=== PATIENT | female | born 1990 | race Caucasian/White ===

== ENCOUNTER 2017-04-11 01:55 | Inpatient (IN) ==
[2017-04-11] MEDS: LACTATED RINGERS 1,000 ML IV SCH ×3 (02:05→03:58)
[2017-04-11] MEDS ORDERED: MEPERIDINE 50 MG/1 ML VIAL IM PRN (02:09)
[2017-04-11] MEDS ORDERED: ONDANSETRON 4 MG/2 ML VIAL IV PRN ×2 (02:09→12:42)
[2017-04-11 02:18] LABS: Basophils % 0.2 % (0.0-0.8); Eosinophils % 0.5 % (0.00-10.9); Hematocrit 33.6 VOL% (35.7-47.0); Hemoglobin 11.2 GM/DL (12.0-16.0); Immature Granulocytes % 0.7 %; Immature Granulocytes Absolute 0.06 #; Lymphocytes % 22.7 % (21.3-54.2); Mean Corpuscular HGB Conc 33.3 GM/DL (32-36); Mean Corpuscular Hemoglobin 32 PG (27-34); Mean Corpuscular Volume 95.5 FL (87-102); Mean Platelet Volume 11.8 FL (9.6-12.0); Monocytes # 0.7 10*3/uL (0.11-0.8); Neutrophils # 5.9 10*3/uL (1.4-7.4); Neutrophils % 67.9 % (38.7-73.9); Platelet Count 187 T/CUMM (130-400); Red Blood Count 3.52 MC/CUMM (3.8-5.5); White Blood Count 8.6 T/CUMM (4-12)
[2017-04-11] MEDS ORDERED: CITRIC ACID/SODIUM CITRATE 30 ML UDCUP PO ONE (02:19)
[2017-04-11] MEDS ORDERED: FAMOTIDINE 20 MG/2 ML VIAL IV ONE (02:19)
[2017-04-11] MEDS ORDERED: OXYTOCIN/LR 20 UNIT/1,000 ML BAG IV ONE ×2 (02:20→12:42)
[2017-04-11] MEDS ORDERED: fentaNYL 2 MCG/ROPIV 0.2% EPID 150 ML EPIDURAL SCH (02:21)
[2017-04-11] MEDS ORDERED: ePHEDrine 50 MG/ML AMP ONE (02:43)
[2017-04-11 02:47] LABS: Alanine Aminotransferase 17 U/L (13-56); Albumin 2.7 G/DL (3.4-5.0); Alkaline Phosphatase 146 U/L (45-117); Aspartate Amino Transferase 21 U/L (0-37); Bilirubin,Total < 0.39 MG/DL (0.2-1.0); Blood Urea Nitrogen 8 MG/DL (7-18); Calcium 8.8 MG/DL (8.5-10.1); Glucose 78 MG/DL (74-106); Osmolality,Calculated 271.7 MOS/KG (273-304); Potassium 3.9 MMOL/L (3.5-5.1); Sodium 138 MMOL/L (136-145); Total Protein 6.7 G/DL (6.4-8.3)
[2017-04-11 04:18] LABS: Apearance,Urine CLEAR (Clear); Bilirubin,Urine Negative (Negative); Blood, Urine Negative (Negative); Glucose,Urine (UA) Negative (Negative); Ketones,Urine Negative (Negative); Nitrite,Urine Negative (Negative); Protein,Urine Negative; RBC,Urine <1 /HPF (0-4); Squamous Epithelial Cell,Urine Occasional /HPF (0-10); Urine Color Straw (Yellow); Urine Specific Gravity 1.005 (1.001-1.035); Urine Urobilinogen < 2.0 EU/DL (0.2-1.0); WBC,Urine 2 /HPF (0-6)
[2017-04-11] MEDS ORDERED: miSOPROStol 200 MCG TABLET ONE (07:38)
--- NOTE | 2017-04-11 08:22 | OB/GYN History & Physical ---
History of Present Illness Chief complaint: Primigravida at term with labor History of present illness: Ms. Arce is a 27 year old female who has received her care from Dr. Hummel. There is apparently been no significant complications. She presented to labor and delivery last night with spontaneous rupture of membranes. This is been followed by spontaneous labor and she is progressed to complete dilatation and effacement without or maternal distress. Home Medications Medication Instructions Recorded Confirmed Type Potassium Citrate [Potassium 1 tablet PO DAILY 04/11/17 04/11/17 History Citrate ER] No122/Iron/Folic Acid 1 tablet PO DAILY 04/11/17 04/11/17 History [ Multi Tablet] Allergies Allergy/AdvReac Type Severity Reaction Status Date / Time No Known Allergies Allergy Unverified 07/31/16 08:08 - Constitutional Constitutional: Present: as per HPI - EENT Eyes: Present: as per HPI - Cardiovascular Cardiovascular: Present: as per HPI - Respiratory Respiratory: Present: as per HPI - Gastrointestinal Gastrointestinal: Present: as per HPI - Genitourinary Genitourinary: Present: as per HPI - Musculoskeletal Musculoskeletal: Present: as per HPI - Neurological Neurological: Present: as per HPI - Psychiatric Psychiatric: Present: as per HPI - Endocrine Endocrine: Present: as per HPI - Hematologic/Lymphatic Hematologic/Lymphatic: Present: as per HPI Medical,Surgical,& Family Hx - Medical History Medical History: noncontributory Genitourinary: History of: Kidney Stones Reproductive: No history of: Ectopic , Complication - Surgical History Reproductive Surgeries: Patient denies;: Section - Family History Family History: Reports;: Family Diabetes (MGF, MGM), Family Heart Disease (MGF) , Family Hypertension (MOTHER), Additional Family History (SEIZURES- MGM EPILEPSY) Denies;: Family Anesthesia Reaction, Family Cancer, Family Hematology, Family Psychiatric Problems, Family Stroke - Social History Smoking Status: Never smoker Frequency of Alcohol Use: None Type of Drug Use: None 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 Absent: accessory muscle use - Cardiovascular Cardiovascular exam: Present: regular rate and rhythm - GI/Abdominal GI/Abdominal exam: Present: mass (Uterine fundus of that expected size). Absent : tenderness - Extremities Exam Extremities exam: Present: normal inspection - Neurological Exam Neurological exam: Present: alert, oriented X3 - Psychiatric Psychiatric exam: Present: normal affect, normal mood - Skin Skin exam: Present: normal color, warm Assessment and Plan (1) Active labor at term Status: Acute Assessment and plan: Routine labor management Current Visit: Yes Results - Labs CBC & BMP: 04/11/17 02:05 04/11/17 02:05
--- NOTE | 2017-04-11 09:44 | Operative Note ---
Date of procedure: 04/11/17 Pre-op diagnosis: at term with active labor Post-op diagnosis: same (With delivery, second-degree midline laceration) Procedure: Vacuum-assisted vaginal delivery, repair of second-degree midline laceration The patient was prepped and draped in the dorsolithotomy position and expulsive efforts encouraged. Vacuum extractor was applied to the head fixated in place under the pubic arch, requiring 2 pulls with no pop offs. The perineum was supported his head was delivered. A nuchal cord was noted and clamped and cut on the perineum. Infant's shoulder was delivered with the next push without difficulty. The infant was transferred to the warmer in satisfactory condition , with Apgars of 9 and 9. Weight of approximately 7 pounds was given. The placenta was allowed to separate spontaneously and was delivered Modi Kurtz maneuver. Midline laceration was noted extending from several inches inside the vagina to the perineum almost to the skin. This was closed in a routine fashion right midline episiotomy. The patient and the infant are recovering satisfactorily. Anesthesia: epidural Surgeon / Physician: Myron Graham Estimated blood loss: other (200 cc) Specimens: none sent (Placenta discarded) Disposition: no change Results - Labs CBC & BMP: 04/11/17 02:05 04/11/17 02:05 Discharge Plan - Discharge Medications No Action No122/Iron/Folic Acid [ Multi Tablet] 1 tablet PO DAILY Potassium Citrate [Potassium Citrate ER] 1 tablet PO DAILY - Follow Up or Referral - Forms/Instructions
[2017-04-11] MEDS ORDERED: diphenhydrAMINE 50 MG/1 ML VIAL ONE (09:55)
[2017-04-11] MEDS ORDERED: diphenhydrAMINE 50 MG/1 ML VIAL IV ONE (09:56)
[2017-04-11 10:04] LABS: HIV Antigen/Antibody Result Nonreactive (Nonreactive)
[2017-04-11] MEDS ORDERED: MEASLES/MUMPS/RUBELLA VACCINE 0.5 ML VIAL SUBCUT ONE (12:42)
[2017-04-11] MEDS ORDERED: BISACODYL 10 MG SUPP RECTAL PRN (12:42)
[2017-04-11] MEDS ORDERED: WITCH HAZEL PADS 100/JAR TOP PRN (12:42)
[2017-04-11] MEDS ORDERED: HYDROCORTISONE 2.5% RECTAL CREAM 30 GM TUBE TOP PRN (12:42)
[2017-04-11] MEDS ORDERED: RHO(D) IMMUNE GLOBULIN 300 MCG SYRINGE IM ONE (12:42)
[2017-04-11] MEDS ORDERED: DIPH/TET/ACEL PERT BOOSTER VACCINE 0.5 ML VIAL IM ONE (12:42)
[2017-04-11] MEDS ORDERED: LANOLIN 50% CREAM 0.3 OZ TUBE TOP PRN (12:42)
[2017-04-11] MEDS ORDERED: ACETAMINOPHEN 325 MG TABLET PO PRN (12:42)
[2017-04-11] MEDS ORDERED: BENZOCAINE 20%/MENTHOL 0.5% SPRAY 56 GM CAN TOP PRN (12:42)
[2017-04-11] MEDS ORDERED: oxyCODONE/ACETAMINOPHEN 5-325 MG TABLET PO PRN (12:42)
[2017-04-11 13:27] LABS: Hepatitis B Surface Ab Result Negative; Rubella Antibody IgG 67.5 IU/ML
[2017-04-11] MEDS: IBUPROFEN 800 MG TABLET PO PRN ×2 (13:31→22:20)
[2017-04-11] MEDS: oxyCODONE/ACETAMINOPHEN 5-325 MG TABLET PO PRN (17:57)
[2017-04-11] MEDS: DOCUSATE SODIUM 100 MG CAPSULE PO SCH ×2 (21:38→22:20)
[2017-04-12 05:12] LABS: Basophils % 0.2 % (0.0-0.8); Eosinophils # 0.1 10*3/uL (0.0-0.87); Eosinophils % 0.7 % (0.00-10.9); Hematocrit 26.9 VOL% (35.7-47.0); Immature Granulocytes % 0.6 %; Immature Granulocytes Absolute 0.07 #; Lymphocytes # 2.2 10*3/uL (1.4-4.0); Mean Corpuscular HGB Conc 33.5 GM/DL (32-36); Mean Corpuscular Hemoglobin 32 PG (27-34); Mean Corpuscular Volume 96.1 FL (87-102); Monocytes # 0.8 10*3/uL (0.11-0.8); Monocytes % 6.7 % (1.7-12.7); Neutrophils % 73.8 % (38.7-73.9); Platelet Count 142 T/CUMM (130-400); Red Cell Distribution Width 13.1 % (9.3-17.3); White Blood Count 12.2 T/CUMM (4-12)
--- NOTE | 2017-04-12 07:12 | OB/GYN Progress Note ---
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
[2017-04-12] MEDS: IBUPROFEN 800 MG TABLET PO PRN ×2 (08:56→19:35)
[2017-04-12] MEDS: DOCUSATE SODIUM 100 MG CAPSULE PO SCH ×3 (08:56→21:23)
[2017-04-12] MEDS: oxyCODONE/ACETAMINOPHEN 5-325 MG TABLET PO PRN ×2 (08:57→19:36)
[2017-04-12] MEDS: MULTIVITAMIN (PRENATAL) TABLET PO SCH (08:59)
[2017-04-12] MEDS: POTASSIUM CITRATE 10 MEQ TABLET PO SCH (09:00)
--- NOTE | 2017-04-12 10:07 | Anesthesia Post-Op ---
Anesthesia Post OP - Post Ansesthetic Evaluation Patient seen in post op: Yes Resp: within normal limits CV: within normal limits Mental: within normal limits Temp: within normal limits Wpew-If-Iralhzlvo: within normal limits Nausea and Vomiting: within normal limits Pain: within normal limits
--- NOTE | 2017-04-13 08:23 | Discharge Summary ---
Hospital Course - Hospital Course Hospital Course: patient did well. She had quick return of bowel bladder function. Remained afebrile and normotensive throughout her hospitalization. She is constantly discharged on day #2 on a regular diet Specialty Discharge - Follow Up or Referrals Follow up with: Deuce Hummel MD [Physician] - Discharge Plan - Discharge Data Disposition: Disch To Home/Self Care Condition at Discharge: Stable Discharge Diet: regular diet Activity: resume usual activities as tolerated, other (Pelvic rest) Hygiene: may shower Weight Bearing at Discharge: full weight bearing Driving: no restrictions Contact your physician if you experience:: fever over 101, Difficulty voiding, Redness or swelling, Nausea/Vomiting, Shortness of breath, Bleeding, pain uncontrolled by pain medications - Discharge Medications New Acetaminophen Tab [Tylenol Tab] 650 mg PO Q6H PRN tablet PRN Reason: Fever > 100.4 Or Headache Benzocaine 20%/Menth 0.5% Spr [Dermoplast [place]] 1 spray TOP QID PRN PRN Reason: Pain HYDROcodone/ACETAMIN 5-325 [[place] 5-325] 1 tablet PO Q4H PRN #15 tablet PRN Reason: Abdominal Pain Ibuprofen Tab [Motrin Tab] 800 mg PO Q6H PRN tablet PRN Reason: Pain Moderate (4-7) Hydrocortisone 2.5% Rectal Cr [Anusol HC Cream] 1 applic TOP QID PRN applic PRN Reason: Hemorrhoids Witch Dunia Pads [Tucks Pads] 1 applic TOP Q4H PRN applic PRN Reason: Hemorrhoids Continue No122/Iron/Folic Acid [ Multi Tablet] 1 tablet PO DAILY Discontinued Potassium Citrate [Potassium Citrate ER] 1 tablet PO DAILY - Follow Up or Referral Follow Up: Deuce Hummel MD [Physician] - 2 Weeks - Forms/Instructions Instructions: Depression (GEN), Perineal Care (DC), Vaginal Delivery (DC), Bleeding (DC), Sitz Bath (DC) Exam - Constitutional Vitals: Period Temp Pulse Resp BP Sys/Porter Pulse Ox Last 24 Hr 97.2 F-97.5 F 64-81 16-20 122-128/67-82 96-99 DS: Provider Date of admission: 04/11/17 02:09 Primary care physician: Tobin Sandoval Jr., MD Attending physician on admission: Myron Graham DO Consults: 04/11/17 02:09 Consult to Anesthesiology [CONS] Routine Consulting Provider: Reason for Anesthesiology: Epidural Consult Comment: Epidural for pain managment 04/11/17 12:42 Consult to Ore Tester [CONS] Routine Consult Ore Tester: Breast Feeding Discharging clinician: Gala Posey Expected date of discharge: 04/13/17
[2017-04-13] MEDS: IBUPROFEN 800 MG TABLET PO PRN (08:30)
[2017-04-13] MEDS: MULTIVITAMIN (PRENATAL) TABLET PO SCH (08:31)
[2017-04-13] MEDS: DOCUSATE SODIUM 100 MG CAPSULE PO SCH (08:31)
[2017-04-13 09:34] VITALS: BP 112/70
[2017-04-13] MEDS: POTASSIUM CITRATE 10 MEQ TABLET PO SCH (10:46)
--- NOTE | 2017-04-13 10:49 | Physician Query Form ---
CLICK EDIT DOCUMENT TO SELECT QUERY ANSWER --> OK --> SIGN Aurora Portillo RN Clinical Pulmonologist Intensivist W) [phone] (f) [phone] [email or web address] PROVIDERS: Make your selection(s) from the choices in EACH section by typing an "x" and enter comments in the comment section. Please use your independent medical judgment in providing your response. This request does not imply that any particular answer is desired or expected. CLINICAL INDICATORS: (Providers should not edit this section) Based on documentation of "Vacuum-assisted vaginal delivery" in the operative report. Please clarify the underlying reason for use of vacuum. Based on the above, could you clarify the appropriate diagnosis, if significant , that supports the above abnormalities and additional evaluation, monitoring, and/or treatment rendered: ( ) Distress ( ) Maternal Exhaustion ( ) Labor Complication ( ) Attempted or Failed Delivery ( ) Other complication, please specify: ( ) Clinically unable to determine COMMENTS: PLEASE ALSO DOCUMENT RESPONSE IN PROGRESS NOTES AND/OR DISCHARGE SUMMARY Use of terms such as suspected, likely, or probable (associated with a specific diagnosis that is being evaluated, monitored, or treated as if it exists) are acceptable and can be restated in the discharge summary if not ruled out. [facility]
--- NOTE | 2017-04-13 12:55 | Physician Query Form ---
CLICK EDIT DOCUMENT TO SELECT QUERY ANSWER --> OK --> SIGN PROVIDERS: Make your selection(s) from the choices in EACH section by typing an "x" and enter comments in the comment section. Please use your independent medical judgment in providing your response. This request does not imply that any particular answer is desired or expected. CLINICAL INDICATORS: (Providers should not edit this section) Based on documentation of "Vacuum-assisted vaginal delivery" in the operative report. Please clarify the underlying reason for use of vacuum. Based on the above, could you clarify the appropriate diagnosis, if significant , that supports the above abnormalities and additional evaluation, monitoring, and/or treatment rendered: ( ) Distress ( ) Maternal Exhaustion ( ) Labor Complication ( ) Attempted or Failed Delivery ( ) Other complication, please specify: ( ) Clinically unable to determine COMMENTS: PLEASE ALSO DOCUMENT RESPONSE IN PROGRESS NOTES AND/OR DISCHARGE SUMMARY Use of terms such as suspected, likely, or probable (associated with a specific diagnosis that is being evaluated, monitored, or treated as if it exists) are acceptable and can be restated in the discharge summary if not ruled out. [facility]
== END 2017-04-13 11:45 | disposition home or self-care (01) | DRG 775 ==
LOC: N.LDOUT 01:55 → N.LD 01:57 → N.OB 12:20
PROVIDERS: ADMIT Obstetrics & Gynecology; ATTEND Specialist